=== PATIENT | male | born 1980 | race Caucasian/White ===

== ENCOUNTER 2017-12-15 20:26 | Emergency (ER) | payer BC ==
[~2017-12-15] VITALS: Ht 177.8 cm; Wt 84.0 kg
[2017-12-15 20:29] VITALS: TEMP 37; Ht 177.8 cm; Wt 84.0 kg
[2017-12-15] MEDS ORDERED: GELATIN SPONGE 12-7MM EXT STA (20:58)
[2017-12-15] MEDS ORDERED: FLUT0.15 NAE (21:03)
--- NOTE | 2017-12-15 21:32 | EMERGENCY ROOM VISIT NOTE ---
History First contact with patient: 20:32 Chief Complaint: LACERATION/CUT (SUT/DERMABOND) Stated Complaint: LAC TO LEFT INDEX FINGER Nursing Triage Summary: cut left index finger while cutting peppers went to [facility] and as they were examining it he passed out and was sent here. History of Present Illness The patient is a 37 year old male who presents to the Emergency Room with complaints of a laceration to his left index finger. The patient states that he was slicing peppers this evening and cut the tip of his finger with a knife. He states that he went to [facility], and when they were evaluating the wound he began to feel very woozy and nauseous and had a syncopal episode. He is feeling much better at this time. There is no active bleeding from the wound. His tetanus is up-to-date. He denies any numbness or weakness. He does not take any blood thinners. Review of Systems A complete 10 point review of systems was reviewed with the patient with pertinent positives and negatives as per history of present illness. All else were negative. Past Medical/Surgical History Surgical Problems: (1) History of hernia repair (2) History of vasectomy Family History FHx: cancer Social History Smoking Status: Never Smoker Alcohol Use: occasionally Marital Status: Housing Status: lives with family Occupation Status: employed Current/Historical Medications Scheduled Fluticasone Propionate (Nasal) (Flonase Allergy Relief), 1 SPRAY PANDA DAILY Physical Exam Vital Signs Date Time Temp Pulse Resp B/P (MAP) Pulse Ox O2 Delivery O2 Flow Rate FiO2 12/15/17 21:47 68 119/71 100 12/15/17 20:29 37.0 87 18 149/93 99 Room Air Physical Exam VITALS: Vitals are noted on the nurse's note and reviewed by myself. Vital signs stable. GENERAL: This is a 37-year-old male, in no acute distress, nondiaphoretic, well- developed well-nourished. SKIN: There is a 1 cm avulsion laceration to the lateral aspect of the distal left index finger. There is no active bleeding. Capillary refill within 2 seconds. HEART: Regular rate and rhythm without murmurs gallops or rubs. LUNGS: Clear to auscultation bilaterally without wheezes, rales or rhonchi. NEURO: Patient was alert and oriented to person place and time. Medical Decision & Procedures Medical Decision The patient was evaluated as above. He has an avulsion laceration to the finger which was repaired with Gelfoam and dressing. He sustained a vasovagal syncopal episode but is feeling much better at this time. No deficits on exam. He was encouraged to stay hydrated. Wound care instructions were discussed. He verbalized understanding of my assessment and treatment plan and was discharged home in good condition. Medication Reconcilliation Current Medication List: was personally reviewed by me Blood Pressure Screening Patient's blood pressure: Elevated blood pressure Blood pressure disposition: Elevated BP felt to be situational Impression Primary Impression: Laceration of finger Additional Impression: Vasovagal syncope Departure Information Dispostion Home / Self-Care Condition GOOD Referrals Garcia Chan M.D. (PCP) Patient Instructions My [facility] Additional Instructions You have been treated in the Emergency Department today for your finger Avulsion. Leave the GELFOAM and dressing in place for the next 48 hours. Keep the dressing clean and dry until time for removal. To remove the GELFOAM dressing, remove the overlying tape and then soak the wound in warm water until the piece of GELFOAM can be easily removed. Proper wound care is essential for adequate wound healing and infection prevention. You can shower and clean the wound with soap and water. Do not scour over the wound, pat dry with a towel. You can use an antibiotic ointment with a dressing/bandage over the wound for the next 3-4 days. After this time you may leave the wound dry and open to the air. Look for signs of infection of the wound including: increased pain, swelling, foul discharge, streaking, or increased temperature. If any of these are noticed you should return to the Emergency Department for further assessment and treatment. As with any laceration you may have received nerve damage to the surrounding tissues. This damage could be permanent. For pain control, you can use the following [id number] medicines (if >12 yo): - Regular strength (325mg/tab) Tylenol (acetaminophen) 2 tabs every 4-6 hours as needed. Do not exceed 12 tablets in a 24 hour period. Avoid taking more than 4 grams (4000 mg) of Tylenol per day. This includes any other sources of acetaminophen you may take on a regular basis. - Regular strength (200 mg/tab) Advil (ibuprofen) 1-2 tabs every 4-6 hours as needed. Do not exceed a dose of 3200 mg per day. Return to the emergency department if your symptoms worsen despite treatment course outlined above. Problem Qualifiers Primary Impression: Laceration of finger Encounter type: initial encounter Finger: index finger Damage to nail status: without damage Foreign body presence: without foreign body Laterality: left Qualified Codes: S61.211A - Laceration without foreign body of left index finger without damage to nail, initial encounter
[2017-12-15 21:47] VITALS: BP 119/71; PULSE 68; O2SAT 100
== END 2017-12-15 21:48 | disposition home or self-care (01) ==
LOC: C.EDB 20:28 → C.EDA 21:48
DX: S61.211A Laceration without foreign body of left index finger without damage to nail, initial encounter (principal); R55 Syncope and collapse; W26.0XXA Contact with knife, initial encounter; Y92.89 Other specified places as the place of occurrence of the external cause